=== PATIENT | female | born 1970 | race Caucasian/White ===

== ENCOUNTER 2017-06-15 21:37 | Emergency (ER) | payer OTHER ==
[~2017-06-15] VITALS: Ht 172.7 cm; Wt 88.5 kg
[2017-06-15 21:37] VITALS: BP_SYST 163
[~2017-06-15 21:37] MED LIST: ALBU17AE26; AMLO5TAB4; CYCL-10 PO; FLEXERIL; LORA-258 PO; MONT10TA22 PO; PRED10TA PO; SERT25TA PO
[2017-06-15] MEDS ORDERED: NACL 0.9% 1,000 ML IV ONE (22:00)
[2017-06-15] MEDS ORDERED: ROPI0.5T PO (22:12)
[2017-06-15] MEDS ORDERED: CYCL-10 PO (22:13)
[2017-06-15] MEDS ORDERED: RIVA10TA PO (22:13)
[2017-06-15] MEDS ORDERED: SITA100T7 PO (22:14)
[2017-06-15] MEDS ORDERED: LACO50TA2 PO (22:15)
[2017-06-15] MEDS ORDERED: HYDR-4100 PO (22:17)
[2017-06-15] MEDS ORDERED: MOME13HF2 INH (22:20)
[2017-06-15 22:24] LABS: BASOPHILS % (AUTO) 0.4 % (0.0-2.0); EOSINOPHILS # (AUTO) 0.1 K/uL (0.0-0.4); EOSINOPHILS % (AUTO) 0.7 % (0.0-4.0); HEMATOCRIT 42.6 % (36-48); HEMOGLOBIN 13.7 g/dL (12.0-16.0); LYMPHOCYTES # (AUTO) 3.3 K/uL (1.0-5.5); LYMPHOCYTES % (AUTO) 32.6 % (20.5-51.5); MEAN CORPUSCULAR HEMOGLOBIN 27 pg (27-31); MEAN CORPUSCULAR HGB CONC 32 % (32-36); MEAN CORPUSCULAR VOLUME 83 fL (79.0-98.0); MONOCYTES # (AUTO) 0.9 K/uL (0.0-1.0); MONOCYTES % (AUTO) 8.7 % (1.7-9.3); NEUTROPHILS # (AUTO) 5.9 K/uL (1.8-7.7); NEUTROPHILS % (AUTO) 57.6 % (40.0-70.0); PLATELET COUNT (AUTO) 439 K/uL (130-430); RED BLOOD CELL COUNT(AUTO) 5.15 MIL/uL (4.2-6.2); RED CELL DISTRIBUTION WIDTH 12.9 % (9.0-15.0); WHITE BLOOD COUNT (AUTO) 10.2 K/uL (4.8-10.8)
[2017-06-15] MEDS ORDERED: LEVE500T13 PO (22:25)
[2017-06-15 22:31] LABS: INR 0.9 (0.8-1.2); PROTHROMBIN TIME 10.3 SECS (9.5-12.5)
[2017-06-15 22:32] LABS: CALCIUM 9.4 mg/dL (8.4-11.0); CREATININE 1.11 mg/dL (0.55-1.30); POTASSIUM 3.2 mmol/L (3.5-5.1)
[2017-06-15 22:37] LABS: ALBUMIN 4.3 g/dL (3.4-4.8); TOTAL BILIRUBIN 0.2 mg/dL (0.0-1.0)
[2017-06-15 22:59] LABS: BILIRUBIN,URINE NEGATIVE (NEGATIVE); CLARITY/URINE CLEAR (CLEAR); COLOR,URINE YELLOW (YELLOW); GLUCOSE,URINE NEGATIVE (NEGATIVE); KETONES,URINE NEGATIVE (NEGATIVE); LEUKOCYTE ESTERASE ,URINE 2+ (NEGATIVE); NITRITE, URINE NEGATIVE (NEGATIVE); PH,URINE 6.5 (5.0-8.0); PROTEIN URINE NEGATIVE (NEGATIVE); UROBILINOGEN,URINE 0.2 (0.2-1.0)
[2017-06-15 23:16] LABS: BLOOD, URINE TRACE (NEGATIVE)
[2017-06-15 23:22] LABS: BACTERIA,URINE FEW /HPF (None Seen); RBC,URINE 0-3 /HPF (0-3)
[2017-06-15 23:23] LABS: MUCUS,URINE None Seen /LPF (None Seen)
[2017-06-16 00:05] VITALS: BP_SYST 131
== END 2017-06-16 00:05 | disposition home or self-care (01) ==
LOC: SED 21:37
DX: G40.909 Epilepsy, unspecified, not intractable, without status epilepticus (principal); N39.0 Urinary tract infection, site not specified; J45.909 Unspecified asthma, uncomplicated; K21.9 Gastro-esophageal reflux disease without esophagitis; I10 Essential (primary) hypertension; Z88.1 Allergy status to other antibiotic agents; Z88.6 Allergy status to analgesic agent; Z79.899 Other long term (current) drug therapy; Z88.8 Allergy status to other drugs, medicaments and biological substances
CPT/HCPCS: 36415; 70450; 80053; 81000; 81025; 85025; 85610; 85730; 87086; 93005; 96360; 99285; J7030

== ENCOUNTER 2018-09-12 21:02 | Emergency (ER) | payer OTHER, MEDICAID ==
[~2018-09-12] VITALS: Ht 172.7 cm; Wt 88.0 kg
[~2018-09-12 21:02] MED LIST changes: -ALBU17AE26; -AMLO5TAB4; -FLEXERIL; +HYDR-4100 PO; +LACO50TA2 PO; +LEVE500T9 PO; -LORA-258 PO; +MOME13HF2 INH; -PRED10TA PO; +RIVA10TA PO; +ROPI0.5T PO; +SITA100T11 PO
[2018-09-12 21:07] VITALS: BP_SYST 154
--- NOTE | 2018-09-12 21:10 | NUR ---
Patient ambulatory to ED with c/o right wrist pain. Hx carpal tunnel. Current flare up lasting 3 months. Patient taking home medication with no relief. CMS intact. Mild swelling noted to right wrist. Pain 8/10.
--- NOTE | 2018-09-12 21:10 | NUR ---
Patient to ER bed 6 to gown for evaluation. Side rails up.
--- NOTE | 2018-09-12 21:35 | NUR ---
ER MD Bower at bedside for medical evaluation.
[2018-09-12] MEDS ORDERED: IPRATROPIUM BROM 0.5 MG/2.5 ML VIAL.NEB (ATROVENT) IH ONE (21:45)
[2018-09-12] MEDS ORDERED: ALBUTEROL SULFATE 0.083% 2.5 MG/3 ML VIAL.NEB IH ONE (21:45)
[2018-09-12] MEDS ORDERED: PREDNISONE 20 MG TABLET PO ONE (21:45)
[2018-09-12] MEDS ORDERED: MAG HYDROX/AL HYDROX/SIMETH 30 ML, BELLADONNA ALKALOIDS/PHENOBARB 10 ML, LIDOCAINE VISC... PO ONE ×3 (22:00)
--- NOTE | 2018-09-12 22:15 | NUR ---
No adverse reactions noted after medication administration. Will continue to monitor.
[2018-09-12 22:42] VITALS: BP_SYST 148
--- NOTE | 2018-09-12 22:42 | NUR ---
Patient given written and verbal discharge instructions and verbalizes understanding. ER MD discussed with patient the results and treatment provided. Patient in stable condition. ID arm band removed. IV catheter removed intact and dressing applied, no active bleeding. Rx of Flexeril given. Patient educated on pain management and to follow up with PMD. Pain Scale 0/10. Opportunity for questions provided and answered. Medication side effect fact sheet provided.
== END 2018-09-12 22:42 | disposition home or self-care (01) ==
LOC: SED 21:02
DX: G56.01 Carpal tunnel syndrome, right upper limb (principal); M79.641 Pain in right hand; J45.909 Unspecified asthma, uncomplicated; K21.9 Gastro-esophageal reflux disease without esophagitis; E11.9 Type 2 diabetes mellitus without complications; I10 Essential (primary) hypertension; Z88.0 Allergy status to penicillin; Z88.1 Allergy status to other antibiotic agents; Z88.5 Allergy status to narcotic agent; Z88.6 Allergy status to analgesic agent; Z88.8 Allergy status to other drugs, medicaments and biological substances; Z79.899 Other long term (current) drug therapy
CPT/HCPCS: 73080; 73100; 94640; 99284; J2001; J7512; J7613

== ENCOUNTER 2018-09-14 20:10 | Emergency (ER) | payer OTHER, MEDICAID ==
[~2018-09-14] VITALS: Ht 172.7 cm; Wt 88.0 kg
[2018-09-14 20:22] VITALS: BP_SYST 158
[2018-09-14] MEDS ORDERED: IPRATROPIUM/ALBUTEROL SULFATE 3 ML AMPUL.NEB (DUONEB) INH ONE (20:45)
[2018-09-14 21:30] VITALS: BP_SYST 142
== END 2018-09-14 21:29 | disposition home or self-care (01) ==
LOC: SED 20:10
DX: J45.901 Unspecified asthma with (acute) exacerbation (principal); K21.9 Gastro-esophageal reflux disease without esophagitis; E11.9 Type 2 diabetes mellitus without complications; I10 Essential (primary) hypertension; Z88.0 Allergy status to penicillin; Z88.1 Allergy status to other antibiotic agents; Z88.5 Allergy status to narcotic agent; Z88.6 Allergy status to analgesic agent; Z88.8 Allergy status to other drugs, medicaments and biological substances; Z79.899 Other long term (current) drug therapy
CPT/HCPCS: 99283; J7620

== ENCOUNTER 2019-02-01 20:28 | Emergency (ER) | payer OTHER, MEDICAID ==
[~2019-02-01] VITALS: Ht 172.7 cm; Wt 89.8 kg
[2019-02-01 20:38] VITALS: BP_SYST 156
[2019-02-02] MEDS ORDERED: DIPHENHYDRAMINE INJ 50 MG/ML VIAL IM ONE (00:45)
[2019-02-02] MEDS ORDERED: MORPHINE SULFATE 10 MG/ML VIAL IM ONE (00:45)
[2019-02-02 01:40] VITALS: BP_SYST 133
== END 2019-02-02 01:40 | disposition home or self-care (01) ==
LOC: SED 20:28
DX: S86.911A Strain of unspecified muscle(s) and tendon(s) at lower leg level, right leg, initial encounter (principal); F41.9 Anxiety disorder, unspecified; J45.909 Unspecified asthma, uncomplicated; E11.9 Type 2 diabetes mellitus without complications; K21.9 Gastro-esophageal reflux disease without esophagitis; I10 Essential (primary) hypertension; Z88.0 Allergy status to penicillin; Z88.1 Allergy status to other antibiotic agents; Z88.5 Allergy status to narcotic agent; Z88.6 Allergy status to analgesic agent; Z79.899 Other long term (current) drug therapy; V43.62XA Car passenger injured in collision with other type car in traffic accident, initial encounter; Y93.89 Activity, other specified; Y92.410 Unspecified street and highway as the place of occurrence of the external cause; Y99.8 Other external cause status
CPT/HCPCS: 71046; 93005; 96372; 99283; J1200; J2270

== ENCOUNTER 2020-01-28 21:44 | Emergency (ER) | payer OTHER, MEDICAID ==
[~2020-01-28] VITALS: Ht 160 cm; Wt 82.6 kg
[2020-01-28 21:50] VITALS: BP_SYST 171
[2020-01-28] MEDS ORDERED: DIPHENHYDRAMINE INJ 50 MG/ML VIAL IVP ONE (22:00)
[2020-01-28] MEDS ORDERED: methylPREDNISolone SOD SUCC/PF 62.5 MG/ML VIAL IVP ONE (22:00)
[2020-01-28] MEDS ORDERED: hydrALAZINE HCL 20 MG/ML VIAL IVP ONE (22:00)
[2020-01-28] MEDS ORDERED: NS 500 ML IV ONE (22:00)
[2020-01-28] MEDS ORDERED: MECLIZINE HCL 25 MG TABLET (ANITVERT) PO ONE (23:15)
[2020-01-28 23:55] VITALS: BP_SYST 144
== END 2020-01-28 23:55 | disposition home or self-care (01) ==
LOC: SED 21:44
DX: R42 Dizziness and giddiness (principal); T43.215A Adverse effect of selective serotonin and norepinephrine reuptake inhibitors, initial encounter; I10 Essential (primary) hypertension; J45.909 Unspecified asthma, uncomplicated; E11.9 Type 2 diabetes mellitus without complications; K21.9 Gastro-esophageal reflux disease without esophagitis; Z88.0 Allergy status to penicillin; Z88.1 Allergy status to other antibiotic agents; Z88.5 Allergy status to narcotic agent; Z88.6 Allergy status to analgesic agent; Z79.899 Other long term (current) drug therapy; Y92.89 Other specified places as the place of occurrence of the external cause
CPT/HCPCS: 96374; 96375; 99284; J0360; J1200; J2930; J8597

== ENCOUNTER 2020-05-30 02:05 | Emergency (ER) | payer OTHER, MEDICAID ==
[~2020-05-30] VITALS: Ht 172.7 cm; Wt 87.1 kg
[2020-05-30 02:30] VITALS: BP_SYST 130
--- NOTE | 2020-05-30 03:00 | NUR ---
Patient to ER bed 04 to gown for evaluation. Side rails up. Report given to PATRICIA KIM
--- NOTE | 2020-05-30 03:05 | NUR ---
Pt BIB family to ED C/O bilat feet and toe swelling and pain, self medicated with calus removal cream not effective. Med Hx include DM2, HTN, Asthma. VSS no s/s of acute distress Resting on CHORD rails up
--- NOTE | 2020-05-30 03:10 | NUR ---
Dr. Qureshi bedside for pt eval
[2020-05-30] MEDS ORDERED: SULFAMETHOXAZOLE/TRIMETHOPR DS 1 TABLET PO ONE (03:45)
--- NOTE | 2020-05-30 03:50 | NUR ---
Portable X Ray bedside, well tolerated
[2020-05-30 04:10] VITALS: BP_SYST 128
--- NOTE | 2020-05-30 04:10 | NUR ---
Patient given written and verbal discharge instructions and verbalizes understanding. ER MD discussed with patient the results and treatment provided. Patient in stable condition. ID arm band removed. Rx of Pepcid and Bactrium given. Patient educated on pain management and to follow up with PMD. Pain Scale 0/10 Opportunity for questions provided and answered. Medication side effect fact sheet provided.
== END 2020-05-30 04:10 | disposition home or self-care (01) ==
LOC: SED 02:05
DX: L03.031 Cellulitis of right toe (principal); L97.529 Non-pressure chronic ulcer of other part of left foot with unspecified severity; I10 Essential (primary) hypertension; E11.9 Type 2 diabetes mellitus without complications; K21.9 Gastro-esophageal reflux disease without esophagitis; J45.909 Unspecified asthma, uncomplicated; Z88.0 Allergy status to penicillin; Z88.1 Allergy status to other antibiotic agents; Z88.5 Allergy status to narcotic agent; Z88.6 Allergy status to analgesic agent; Z88.8 Allergy status to other drugs, medicaments and biological substances
CPT/HCPCS: 99283

== ENCOUNTER 2020-06-01 16:53 | Emergency (ER) | payer OTHER, MEDICAID ==
[~2020-06-01] VITALS: Ht 162.6 cm; Wt 89.8 kg
[2020-06-01 17:04] VITALS: BP_SYST 156
== END 2020-06-01 17:27 | disposition home or self-care (01) ==
LOC: SED 16:53
DX: Z48.00 Encounter for change or removal of nonsurgical wound dressing (principal); I10 Essential (primary) hypertension; J45.909 Unspecified asthma, uncomplicated; E11.9 Type 2 diabetes mellitus without complications; K21.9 Gastro-esophageal reflux disease without esophagitis; Z88.0 Allergy status to penicillin; Z88.1 Allergy status to other antibiotic agents; Z88.6 Allergy status to analgesic agent; Z88.5 Allergy status to narcotic agent; Z79.899 Other long term (current) drug therapy
CPT/HCPCS: 99281

== ENCOUNTER 2020-07-27 21:13 | Inpatient (IN) | payer OTHER, MEDICAID, SELFPAY ==
[~2020-07-27] VITALS: Ht 172.7 cm; Wt 90.7 kg
[2020-07-27 21:15] VITALS: BP_SYST 155
[2020-07-27] MEDS ORDERED: LISI10TA5 PO (22:01)
[2020-07-27] MEDS ORDERED: MONT10TA27 PO (22:01)
[2020-07-27] MEDS ORDERED: CETI-80 PO (22:01)
[2020-07-27] MEDS ORDERED: SPIRIVA INH (22:01)
[2020-07-27] MEDS ORDERED: BEMP180T PO (22:01)
[2020-07-27] MEDS ORDERED: DIPH50CA38 PO (22:01)
[2020-07-27] MEDS ORDERED: PRED20TA PO (22:01)
[2020-07-27] MEDS ORDERED: ALPR2TAB2 PO (22:01)
[2020-07-27] MEDS ORDERED: FAMO40TA7 PO (22:01)
[2020-07-27] MEDS ORDERED: GABA-529 PO (22:01)
[2020-07-27] MEDS ORDERED: OMEP20CA15 PO (22:01)
[2020-07-27] MEDS ORDERED: EPIN0.3P3 IM (22:01)
[2020-07-27] MEDS ORDERED: EXEN2AUT SQ (22:01)
[2020-07-27] MEDS ORDERED: DAPA10TA PO (22:01)
[2020-07-27] MEDS ORDERED: ALBU8.5H8 INH (22:01)
[2020-07-27] MEDS ORDERED: NALO2AUT IJ (22:03)
[2020-07-27] MEDS ORDERED: BUDE6HFA INH (22:03)
[2020-07-27 22:18] LABS: BASOPHILS % (AUTO) 0.3 % (0.0-2.0); EOSINOPHILS % (AUTO) 0.2 % (0.0-4.0); HEMATOCRIT 40.6 % (36-48); HEMOGLOBIN 13.2 g/dL (12.0-16.0); LYMPHOCYTES # (AUTO) 2.5 K/uL (1.0-5.5); LYMPHOCYTES % (AUTO) 24.3 % (20.5-51.5); MEAN CORPUSCULAR HEMOGLOBIN 27 pg (27-31); MEAN CORPUSCULAR HGB CONC 33 % (32-36); MEAN CORPUSCULAR VOLUME 83 fL (79.0-98.0); MONOCYTES # (AUTO) 0.9 K/uL (0.0-1.0); MONOCYTES % (AUTO) 8.7 % (1.7-9.3); NEUTROPHILS # (AUTO) 6.9 K/uL (1.8-7.7); NEUTROPHILS % (AUTO) 66.5 % (40.0-70.0); PLATELET COUNT (AUTO) 484 K/uL (130-430); RED BLOOD CELL COUNT(AUTO) 4.92 MIL/uL (4.2-6.2); RED CELL DISTRIBUTION WIDTH 13.9 % (9.0-15.0); WHITE BLOOD COUNT (AUTO) 10.4 K/uL (4.8-10.8)
[2020-07-27] MEDS ORDERED: IOHEXOL 350 mgI/mL, 150 ML INFUS..BTL IV ONE (22:18)
[2020-07-27 22:19] LABS: CALCIUM 9.6 mg/dL (8.4-11.0); CREATININE 0.92 mg/dL (0.55-1.30); POTASSIUM 3.7 mmol/L (3.5-5.1)
[2020-07-27 22:24] LABS: PROTHROMBIN TIME 10.4 SECS (9.5-12.5)
[2020-07-27 22:30] LABS: ALBUMIN 4.5 g/dL (3.4-4.8); TOTAL BILIRUBIN 0.4 mg/dL (0.0-1.0)
[2020-07-27] MEDS ORDERED: MORPHINE 4 MG/ML INJ. SYRINGE IVP ONE (23:30)
[2020-07-27] MEDS ORDERED: NITROGLYCERIN 1 INCH (GM) OINT. TP ONE (23:30)
[2020-07-27] MEDS ORDERED: NITROGLYCERIN 1 INCH (GM) OINT. ONE (23:52)
[2020-07-28] VITALS (7 sets, daily range): BP systolic 119–144
[2020-07-28] MEDS ORDERED: PANTOPRAZOLE SODIUM 40 MG in NS 50 ML IV SCH ×2
[2020-07-28] MEDS ORDERED: PANTOPRAZOLE SODIUM 40 MG/VIAL (PROTONIX) IVP ONE
[2020-07-28] MEDS ORDERED: IPRATROPIUM/ALBUTEROL SULFATE 3 ML AMPUL.NEB (DUONEB) INH PRN (06:30)
[2020-07-28] MEDS: IPRATROPIUM/ALBUTEROL SULFATE 3 ML AMPUL.NEB (DUONEB) INH SCH ×3 (08:38→15:00)
[2020-07-28] MEDS ORDERED: INSULIN REGULAR, HUMAN 100 UNITS/ML, 10 ML VIAL (humuLIN R) SUBCUT PRN (09:00)
[2020-07-28] MEDS ORDERED: DEXTROSE 50% JECT 50 ML DISP.SYRIN IVP PRN (09:00)
[2020-07-28] MEDS ORDERED: ALPRAZolam 0.25 MG TABLET PO PRN (10:00)
[2020-07-28] MEDS ORDERED: NALOXONE HCL 0.4 MG/ML AMP (NARCAN) IVP PRN ×2 (10:00→10:15)
[2020-07-28] MEDS ORDERED: NALOXONE HCL 2 MG IJ SCH (10:00)
[2020-07-28] MEDS ORDERED: NITROGLYCERIN 0.4 MG TAB.SUBL SL PRN (10:15)
[2020-07-28] MEDS ORDERED: HYDROcodone/ACETAMIN 5-325 MG TAB (NORCO/ VICODIN) PO PRN (10:15)
[2020-07-28] MEDS ORDERED: ALBUTEROL SULFATE 0.083% 2.5 MG/3 ML VIAL.NEB INH PRN (10:15)
[2020-07-28] MEDS ORDERED: LISINOPRIL 10 MG TABLET (PRINIVIL) PO ONE (11:00)
[2020-07-28] MEDS ORDERED: FAMOTIDINE 20 MG TABLET PO ONE (11:00)
[2020-07-28] MEDS: predniSONE 20 MG TABLET PO SCH (12:00)
[2020-07-28] MEDS: HYDROcodone/ACETAMIN 10-325 MG TAB PO SCH ×3 (13:00→21:00)
[2020-07-28] MEDS ORDERED: predniSONE 20 MG TABLET PO ONE (13:15)
[2020-07-28] MEDS: ALBUTEROL SULFATE 0.083% 2.5 MG/3 ML VIAL.NEB INH SCH ×2 (13:28→19:43)
[2020-07-28] MEDS ORDERED: predniSONE 20 MG TABLET ONE (14:00)
[2020-07-28] MEDS ORDERED: DIPHENHYDRAMINE HCL 50 MG CAPSULE PO SCH (15:00)
[2020-07-28] MEDS ORDERED: DIPHENHYDRAMINE HCL 25 MG CAPSULE PO ONE (16:00)
[2020-07-28] MEDS: CYCLOBENZAPRINE HCL 10 MG TABLET (FLEXERIL) PO SCH ×2 (16:08→21:00)
[2020-07-28] MEDS ORDERED: MONTELUKAST 10 MG TABLET PO SCH (18:00)
[2020-07-28] MEDS: BUDESONIDE 0.5 MG/2 ML AMPUL.NEB INH SCH (19:43)
[2020-07-28] MEDS: GABAPENTIN 100 MG CAPSULE PO SCH (21:00)
[2020-07-28] MEDS: DIPHENHYDRAMINE HCL 25 MG CAPSULE PO SCH (21:00)
[2020-07-28] MEDS ORDERED: NON-FORMULARY MEDICATION (Mometasone/Formoterol* (Dulera 100 Mcg/5 Mcg Inhaler*) 2 PUFF) INH SCH (21:00)
[2020-07-28] MEDS: LACOSAMIDE 100 MG TABLET PO SCH (21:00)
[2020-07-28] MEDS: levETIRAcetam 500 MG TABLET PO SCH (21:00)
[2020-07-29 00:07] VITALS: BP_SYST 125
[2020-07-29] MEDS: ALBUTEROL SULFATE 0.083% 2.5 MG/3 ML VIAL.NEB INH SCH ×3 (01:10→13:31)
[2020-07-29 06:25] LABS: BASOPHILS % (AUTO) 0.2 % (0.0-2.0); EOSINOPHILS % (AUTO) 0.1 % (0.0-4.0); HEMATOCRIT 38.4 % (36-48); HEMOGLOBIN 12.3 g/dL (12.0-16.0); LYMPHOCYTES # (AUTO) 1.9 K/uL (1.0-5.5); LYMPHOCYTES % (AUTO) 16.6 % (20.5-51.5); MEAN CORPUSCULAR HEMOGLOBIN 27 pg (27-31); MEAN CORPUSCULAR HGB CONC 32 % (32-36); MEAN CORPUSCULAR VOLUME 84 fL (79.0-98.0); MONOCYTES # (AUTO) 0.7 K/uL (0.0-1.0); MONOCYTES % (AUTO) 6.6 % (1.7-9.3); NEUTROPHILS # (AUTO) 8.6 K/uL (1.8-7.7); NEUTROPHILS % (AUTO) 76.5 % (40.0-70.0); PLATELET COUNT (AUTO) 484 K/uL (130-430); RED BLOOD CELL COUNT(AUTO) 4.57 MIL/uL (4.2-6.2); RED CELL DISTRIBUTION WIDTH 13.7 % (9.0-15.0); WHITE BLOOD COUNT (AUTO) 11.2 K/uL (4.8-10.8)
[2020-07-29] MEDS: IPRATROPIUM/ALBUTEROL SULFATE 3 ML AMPUL.NEB (DUONEB) INH SCH ×2 (07:00→11:00)
[2020-07-29] MEDS: BUDESONIDE 0.5 MG/2 ML AMPUL.NEB INH SCH (07:20)
[2020-07-29 07:26] VITALS: BP_SYST 112
[2020-07-29 07:44] LABS: CALCIUM 9.4 mg/dL (8.4-11.0); CREATININE 0.93 mg/dL (0.55-1.30); FREE T4 (FREE THYROXINE) 1.3 ng/dl (0.8-1.5); POTASSIUM 4.4 mmol/L (3.5-5.1); THYROID STIMULATING HORMONE 0.35 uIu/mL (0.36-3.74); TOTAL BILIRUBIN 0.6 mg/dL (0.0-1.0)
[2020-07-29] MEDS ORDERED: REGADENOSON 0.4 MG/5 ML SYRINGE IVP ONE (09:00)
[2020-07-29] MEDS ORDERED: LISINOPRIL 10 MG TABLET (PRINIVIL) PO SCH (09:00)
[2020-07-29] MEDS ORDERED: MONTELUKAST 10 MG TABLET PO SCH (09:00)
[2020-07-29] MEDS: HYDROcodone/ACETAMIN 10-325 MG TAB PO SCH ×2 (09:00→14:17)
[2020-07-29] MEDS ORDERED: PANTOPRAZOLE SODIUM 40 MG TAB PO SCH (09:00)
[2020-07-29] MEDS ORDERED: FAMOTIDINE 20 MG TABLET PO SCH (09:00)
[2020-07-29] MEDS ORDERED: TIOTROPIUM BROMIDE 18 mcg/INHALATION (CAPSULE) INH SCH (09:00)
[2020-07-29 09:41] LABS: BARBITURATE, URINE NEGATIVE (NEG <=200); BENZODIAZEPINE, URINE NEGATIVE (NEG <=150); CANNABINOID, URINE NEGATIVE (NEG <=50); COCAINE, URINE NEGATIVE (NEG <=150); METHAMPHETAMINES SCREEN,URINE NEGATIVE (NEG <=500); PHENCYCLIDINE SCREEN,URINE NEGATIVE (NEG <=25); URINE AMPHETAMINE NEGATIVE (NEG <=500); URINE METHADONE NEGATIVE (NEG <=200)
[2020-07-29 09:42] LABS: OPIATE, URINE POSITIVE (NEG <=100); UR TRICYCLIC ANTIDEPRESSANTS NEGATIVE (NEG <=300); URINE OXYCODONE SCREEN NEGATIVE (NEG <=100); URINE PROPOXYPHENE SCREEN NEGATIVE (NEG <=300)
[2020-07-29] MEDS: predniSONE 20 MG TABLET PO SCH (10:57)
[2020-07-29] MEDS: levETIRAcetam 500 MG TABLET PO SCH (10:58)
[2020-07-29] MEDS: GABAPENTIN 100 MG CAPSULE PO SCH (11:00)
[2020-07-29] MEDS: CYCLOBENZAPRINE HCL 10 MG TABLET (FLEXERIL) PO SCH ×2 (11:02→14:16)
[2020-07-29] MEDS: DIPHENHYDRAMINE HCL 25 MG CAPSULE PO SCH ×2 (11:03→14:17)
[2020-07-29] MEDS: LACOSAMIDE 100 MG TABLET PO SCH (11:03)
[2020-07-29 11:32] VITALS: BP_SYST 116
[2020-07-29 15:23] VITALS: BP_SYST 119
[2020-07-29 16:13] VITALS: BP_SYST 119
== END 2020-07-29 17:31 | disposition home or self-care (01) | DRG 313 ==
LOC: SED 21:13 → STU 23:56
PROVIDERS: ADMIT Internal Medicine; ATTEND Internal Medicine
DX: R07.89 Other chest pain (principal); M54.9 Dorsalgia, unspecified; F41.9 Anxiety disorder, unspecified; I10 Essential (primary) hypertension; K21.9 Gastro-esophageal reflux disease without esophagitis; E66.9 Obesity, unspecified; Z20.828 Contact with and (suspected) exposure to other viral communicable diseases; E11.9 Type 2 diabetes mellitus without complications; G40.909 Epilepsy, unspecified, not intractable, without status epilepticus; D72.829 Elevated white blood cell count, unspecified; T38.0X5A Adverse effect of glucocorticoids and synthetic analogues, initial encounter; G89.4 Chronic pain syndrome; J45.909 Unspecified asthma, uncomplicated; Z90.49 Acquired absence of other specified parts of digestive tract; Z86.711 Personal history of pulmonary embolism; Z88.1 Allergy status to other antibiotic agents; Z88.0 Allergy status to penicillin; Z88.5 Allergy status to narcotic agent; Z88.8 Allergy status to other drugs, medicaments and biological substances; Z91.010 Allergy to peanuts; Z91.013 Allergy to seafood; Y92.89 Other specified places as the place of occurrence of the external cause
CPT/HCPCS: 36415; 71045; 71275; 80053; 80061; 80307; 82962; 83036; 83735-TC; 83880; 84439; 84443-TC; 84484; 84703; 85025; 85379; 85610-TC; 85730-TC; 93005; 93017; 93306; 94640; 94760; 96374; 99291; A9500; G0378; J1815; J2270; J2785; J7512; J7613; J7626; Q0163; Q9967

== ENCOUNTER 2020-12-17 00:30 | Emergency (ER) | payer OTHER, MEDICAID ==
[~2020-12-17] VITALS: Ht 172.7 cm; Wt 95.3 kg
[~2020-12-17 00:30] MED LIST changes: +ALBU8.5H8 INH; +ALPR2TAB2 PO; +BEMP180T PO; +BUDE6HFA INH; +CETI-80 PO; +DAPA10TA PO; +DIPH50CA38 PO; +EPIN0.3P3 IM; +EXEN2AUT SQ; +FAMO40TA7 PO; +GABA-529 PO; +HYDR-3927 PO; -HYDR-4100 PO; +LISI10TA29 PO; +MONT10TA33 PO; +NALO2AUT IJ; +OMEP20CA15 PO; +PRED20TA PO; -RIVA10TA PO; -ROPI0.5T PO; -SERT25TA PO; -SITA100T11 PO; +SPIRIVA INH
[2020-12-17 00:40] VITALS: BP_SYST 157
--- NOTE | 2020-12-17 00:44 | NUR ---
Patient to ER bed 3 to gown for evaluation. Side rails up.
--- NOTE | 2020-12-17 00:48 | NUR ---
Patient BIB by family from home. C/O bilateral foot pain x 2 days. Patient states " I did apply lotion both feet, It started swelling and pain." A/O,X4, bilateral foot pain, pain rate 3-4/10.
--- NOTE | 2020-12-17 01:42 | NUR ---
ER Dr. Qureshi at bedside examining patient.
[2020-12-17] MEDS ORDERED: HYDROcodone/ACETAMIN 10-325 MG TAB ONE (02:07)
[2020-12-17] MEDS ORDERED: HYDROcodone/ACETAMIN 10-325 MG TAB PO ONE (02:15)
[2020-12-17] MEDS ORDERED: TRIA15CR3 TP (02:28)
[2020-12-17 02:33] VITALS: BP_SYST 157
--- NOTE | 2020-12-17 02:33 | NUR ---
Patient given written and verbal discharge instructions and verbalizes understanding. ER MD discussed with patient the results and treatment provided. Patient in stable condition. ID arm band removed. Rx of Triamcinolone given. Patient educated on pain management and to follow up with PMD. Pain Scale 2/10. Opportunity for questions provided and answered. Medication side effect fact sheet provided.
== END 2020-12-17 02:33 | disposition home or self-care (01) ==
LOC: SED 00:30
DX: T78.40XA Allergy, unspecified, initial encounter (principal); J44.9 Chronic obstructive pulmonary disease, unspecified; K21.9 Gastro-esophageal reflux disease without esophagitis; I10 Essential (primary) hypertension; F41.9 Anxiety disorder, unspecified; E11.9 Type 2 diabetes mellitus without complications; Z79.899 Other long term (current) drug therapy; Z88.0 Allergy status to penicillin; Z88.1 Allergy status to other antibiotic agents; Z88.6 Allergy status to analgesic agent; X58.XXXA Exposure to other specified factors, initial encounter
CPT/HCPCS: 99283

== ENCOUNTER 2020-12-25 18:12 | Emergency (ER) | payer OTHER, MEDICAID ==
[~2020-12-25] VITALS: Ht 172.7 cm; Wt 90.7 kg
[~2020-12-25 18:12] MED LIST changes: +TRIA15CR3 TP
[2020-12-25 18:18] VITALS: BP_SYST 167
[2020-12-25] MEDS ORDERED: HYDROcodone/ACETAMIN 5-325 MG TAB (NORCO/ VICODIN) PO ONE (18:30)
[2020-12-25 20:17] VITALS: BP_SYST 150
== END 2020-12-25 20:17 | disposition home or self-care (01) ==
LOC: SED 18:12
DX: R51.9 Headache, unspecified (principal); J44.9 Chronic obstructive pulmonary disease, unspecified; I10 Essential (primary) hypertension; E11.9 Type 2 diabetes mellitus without complications; K21.9 Gastro-esophageal reflux disease without esophagitis; F41.9 Anxiety disorder, unspecified; Z87.442 Personal history of urinary calculi; Z79.899 Other long term (current) drug therapy; Z88.1 Allergy status to other antibiotic agents; Z88.0 Allergy status to penicillin; Z88.6 Allergy status to analgesic agent; Z88.8 Allergy status to other drugs, medicaments and biological substances
CPT/HCPCS: 70450-TC; 76376; 99284

== ENCOUNTER 2021-10-15 21:39 | Emergency (ER) | payer OTHER, MEDICAID, SELFPAY ==
[~2021-10-15] VITALS: Ht 172.7 cm; Wt 93.0 kg
[~2021-10-15 21:39] MED LIST changes: -CYCL-10 PO; +CYCL10TA24 PO; +MONT-40 PO; -MONT10TA33 PO
[2021-10-15 21:45] VITALS: BP_SYST 167
--- NOTE | 2021-10-15 21:45 | NUR ---
Patient triaged and placed in waiting room. VSS and patient appears in no acute distress at this time. Accompanied by FAM MEMBER, awaiting available bed, and MD notified of need for MSE.
--- NOTE | 2021-10-15 23:40 | NUR ---
CALL PT NAME IN THE WR.NO ANSWER.
--- NOTE | 2021-10-15 23:45 | NUR ---
CALL PT NAME IN THE WR.NO ANSWER.
--- NOTE | 2021-10-15 23:50 | NUR ---
CALL PT NAME IN THE WR.NO ANSWER.
== END 2021-10-15 23:50 | disposition left against medical advice (07) ==
LOC: SED 21:39
DX: T78.40XA Allergy, unspecified, initial encounter (principal); Z53.21 Procedure and treatment not carried out due to patient leaving prior to being seen by health care provider

== ENCOUNTER 2022-12-24 17:45 | Emergency (ER) | payer OTHER, MEDICAID ==
[~2022-12-24] VITALS: Ht 165.1 cm; Wt 70.8 kg
[~2022-12-24 17:45] MED LIST changes: +Aspirin Ec PO; +DOXY100C5 PO; +MECL-225 PO; +MOME13HF12 INH; -MOME13HF2 INH; +MONT-47 PO; -MONT10TA22 PO
[2022-12-24 18:05] VITALS: BP_SYST 163
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
[2022-12-24] MEDS ORDERED: MORPHINE 4 MG INJ. 4 MG/ML VIAL IM ONE (18:30)
--- NOTE | 2022-12-24 18:30 | NUR ---
ER at bedside examining patient.
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
--- NOTE | 2022-12-24 19:17 | NUR ---
Gave report to PATRICIA Long.
[2022-12-24] MEDS ORDERED: HYDR-3917 PO (19:19)
[2022-12-24] MEDS ORDERED: MECL-108 PO (19:25)
--- NOTE | 2022-12-24 19:25 | NUR ---
Patient given written and verbal discharge instructions and verbalizes understanding. ER MD discussed with patient the results and treatment provided. Patient in stable condition. ID arm band removed. Rx of hydrocodone given. Patient educated on pain management and to follow up with PMD. Pain Scale 0/10. Opportunity for questions provided and answered. Medication side effect fact sheet provided.
[2022-12-24] MEDS ORDERED: MECLIZINE HCL 25 MG TABLET (ANITVERT) PO ONE (19:30)
[2022-12-24 20:21] VITALS: BP_SYST 140
== END 2022-12-24 20:21 | disposition home or self-care (01) ==
LOC: SED 17:45
DX: M54.50 Low back pain, unspecified (principal); M25.512 Pain in left shoulder; Z88.0 Allergy status to penicillin; Z88.1 Allergy status to other antibiotic agents; Z88.5 Allergy status to narcotic agent; Z88.6 Allergy status to analgesic agent; Z88.8 Allergy status to other drugs, medicaments and biological substances; Z79.899 Other long term (current) drug therapy; V89.2XXA Person injured in unspecified motor-vehicle accident, traffic, initial encounter; Y93.89 Activity, other specified; Y92.89 Other specified places as the place of occurrence of the external cause; Y99.8 Other external cause status
CPT/HCPCS: 99283; 96372; J8597; J2270

== ENCOUNTER 2023-11-28 22:06 | Emergency (ER) | payer OTHER ==
[~2023-11-28 22:06] MED LIST changes: +HYDR-3917 PO; +MECL-108 PO
== END 2023-11-28 23:33 | disposition left against medical advice (07) ==
LOC: SED 22:06
DX: T88.7XXA Unspecified adverse effect of drug or medicament, initial encounter (principal); Z53.21 Procedure and treatment not carried out due to patient leaving prior to being seen by health care provider

== ENCOUNTER 2024-03-07 17:31 | Emergency (ER) | payer OTHER, MEDICAID ==
[~2024-03-07] VITALS: Ht 165.1 cm; Wt 81.6 kg
[2024-03-07 17:58] VITALS: BP_SYST 122; PULSE 101; RESP 16; TEMP 98.3; O2SAT 99
[2024-03-07 18:11] VITALS: BP_SYST 122; PULSE 101; RESP 16; TEMP 98.3; O2SAT 99
== END 2024-03-07 18:10 | disposition home or self-care (01) ==
LOC: SED 17:31
DX: S31.030D Puncture wound without foreign body of lower back and pelvis without penetration into retroperitoneum, subsequent encounter (principal); J45.909 Unspecified asthma, uncomplicated; E11.9 Type 2 diabetes mellitus without complications; K21.9 Gastro-esophageal reflux disease without esophagitis; I10 Essential (primary) hypertension; F41.9 Anxiety disorder, unspecified; Z88.0 Allergy status to penicillin; Z88.1 Allergy status to other antibiotic agents; Z88.5 Allergy status to narcotic agent; Z88.6 Allergy status to analgesic agent; Z88.8 Allergy status to other drugs, medicaments and biological substances; Z79.899 Other long term (current) drug therapy; Z79.2 Long term (current) use of antibiotics; Z98.890 Other specified postprocedural states; X58.XXXA Exposure to other specified factors, initial encounter
CPT/HCPCS: 87070; 99283